=== PATIENT | female | born 1995 | race African-American/Black ===

== ENCOUNTER 2018-09-22 20:50 | Emergency (ER) | payer OTHER ==
[~2018-09-22] VITALS: Ht 149.9 cm; Wt 108.9 kg
[2018-09-22 21:05] VITALS: BP 141/71
[2018-09-22] MEDS ORDERED: METFORMIN HCL500 MG PO (21:15)
[2018-09-22] MEDS ORDERED: NAPROSYN500 MG PO (21:46)
== END 2018-09-22 21:57 | disposition home or self-care (01) ==
LOC: ER 20:50
DX: S60.032A Contusion of left middle finger without damage to nail, initial encounter (principal); W31.9XXA Contact with unspecified machinery, initial encounter; Y93.89 Activity, other specified; Y92.89 Other specified places as the place of occurrence of the external cause; Y99.8 Other external cause status; E11.9 Type 2 diabetes mellitus without complications

== ENCOUNTER 2019-10-03 01:43 | Emergency (ER) | payer OTHER ==
[~2019-10-03] VITALS: Ht 147.3 cm; Wt 108.9 kg
[~2019-10-03 01:43] MED LIST: METFORMIN HCL500 MG PO; NAPROSYN500 MG PO
[2019-10-03 02:21] LABS: URINE BILIRUBIN NEGATIVE (Negative); URINE BLOOD NEGATIVE (Negative); URINE CLARITY CLEAR; URINE COLOR YELLOW; URINE GLUCOSE-RANDOM* NEGATIVE (Negative); URINE KETONES NEGATIVE (Negative); URINE LEUKOCYTES-REFLEX NEGATIVE (Negative); URINE NITRITE-REFLEX NEGATIVE (Negative); URINE PROTEIN (DIPSTICK) NEGATIVE (Negative); URINE SPECIFIC GRAVITY >= 1.030 (1.005-1.035)
[2019-10-03 02:54] LABS: HEMATOCRIT 39.8 % (37.0-47.0); MCH 25.2 pg (26.0-34.0); MCHC 32.8 g/dL (28.0-37.0); PLATELET COUNT 280 thou/uL (150-400); RBC 5.16 mil/uL (4.20-5.00); RDW 16.8 % (10.5-14.5); WBC 4.7 thou/uL (4.0-11.0)
[2019-10-03 03:04] LABS: CALCIUM 8.5 mg/dL (8.5-10.1); CREATININE 0.8 mg/dL (0.6-1.0); POTASSIUM 3.6 mmol/L (3.5-5.1)
[2019-10-03 03:11] LABS: ALBUMIN 3.7 g/dL (3.4-5.0); TOTAL BILIRUBIN 1.2 mg/dL (<0.1-1.0); TOTAL PROTEIN 7.7 g/dL (6.4-8.2)
[2019-10-03 04:02] LABS: ABSOLUTE NEUTROPHILS 1.9 thou/uL (1.4-8.2); ANISOCYTOSIS 1+; ATYPICAL LYMPHS 9 %
[2019-10-03 04:51] VITALS: BP 100/44
== END 2019-10-03 04:53 | disposition still patient (30) ==
LOC: ER 01:43
PROVIDERS: Emergency Medicine
DX: R10.13 Epigastric pain (principal); R50.9 Fever, unspecified; R11.2 Nausea with vomiting, unspecified; R51 Headache; E11.9 Type 2 diabetes mellitus without complications

== ENCOUNTER 2021-08-20 04:12 | Emergency (ER) | payer OTHER ==
[~2021-08-20] VITALS: Ht 149.9 cm; Wt 108.4 kg
[2021-08-20] MEDS ORDERED: LORATIDINE 10 M10 M1 PO (04:31)
[2021-08-20] MEDS ORDERED: AZITHROMYCIN 2250 MG PO (04:58)
[2021-08-20] MEDS ORDERED: TESSALON PERLE100 M1 PO (04:58)
[2021-08-20 05:44] VITALS: BP 114/66
== END 2021-08-20 05:56 | disposition home or self-care (01) ==
LOC: ER 04:12
PROVIDERS: Emergency Medicine
DX: O99.519 Diseases of the respiratory system complicating pregnancy, unspecified trimester (principal); Z20.822 Contact with and (suspected) exposure to COVID-19; J18.9 Pneumonia, unspecified organism; Z3A.00 Weeks of gestation of pregnancy not specified; E11.9 Type 2 diabetes mellitus without complications; Z79.84 Long term (current) use of oral hypoglycemic drugs; Z79.899 Other long term (current) drug therapy